=== PATIENT | male | born 1955 | race Caucasian/White ===

== ENCOUNTER 2016-07-19 09:50 | Inpatient (IN) | payer MEDICAID ==
--- NOTE | 2016-07-19 09:56 | C.PDOC ---
History Of Present Illness LIMITED DUE TO CLIN COND HX PER EMS FOUND AMS. SON STATES PT FELL OUT OF BED @ 0300, PER EMS SON STATED PT "SEEMED OFF" BUT PT STATED WAS FINE, WAS PLACED BACK IN BED. PT AWOKE @ 0915 W SLURRED SPEECH, LETHARGY. EMS STATES PT FOUND W BOTTLE MORPHINE FOR 60 DAY SUPPLY FILLED 06/27, ONLY 2 PILLS LEFT. UNK DOSE. HO PRIOR L SIDED CVA ROS UTO EXAM MOD DIST, LETHARGIC HEENT PUPILS PINPOINT, SLUGGISH; +GAG REFLEX LUNGS APNEIC, POOR EFFORT CTA B/L CV RRR NEURO CHRONIC L SIDED HEMIPLEGIA; FOCAL RESPONSE TO PAIN R UE PSYCH APPEARS NARC INTOX SKIN WARM DRY Time Seen by Provider: 07/19/16 09:56 History Per: EMS History/Exam Limitations: clinical condition Current Symptoms Are (Timing): Still Present Past Medical History Reviewed: Historical Data, Nursing Documentation, Vital Signs Vital Signs: Last Vital Signs Temp 97.7 F 07/19/16 10:01 Pulse 84 07/19/16 12:14 Resp 20 07/19/16 12:14 BP 165/93 H 07/19/16 12:14 Pulse Ox 100 07/19/16 12:14 - Medical History PMH: CVA Family History: States: Unknown Family Hx Review Of Systems Review Of Systems: ROS cannot be obtained secondary to pt's inabilty to answer questions. Physical Exam - Physical Exam Appears: Other (MODERATE DISTRESS, LETHARGIC) Skin: Warm, Dry Head: Atraumatic, Normacephalic Eye(s): bilateral: Other (PUPILS PINPOINT, SLUGGISH) Throat: Other (+GAG REFLEX) Chest: Symmetrical Cardiovascular: Rhythm Regular Respiratory: No Rales, No Rhonchi, No Wheezing, Other (APNEIC, POOR EFFORT CTA B /L) Gastrointestinal/Abdominal: Soft, No Tenderness Neurological/Psych: Other (NEURO: CHRONIC L SIDED HEMIPLEGIA; FOCAL RESPONSE TO PAIN R UPPER EXTREMITY. PSYCH APPEARS NARC INTOX.) ED Course And Treatment - Laboratory Results Result Diagrams: 07/19/16 10:30 07/19/16 10:30 ECG: Interpreted By Me ECG Rhythm: 1st Degree HB ECG Interpretation: No Acute Changes Rate From EC (BPM) Progress - Re-Evaluation Re-evaluation Note: 07/19/16 09:56 SP NARCAN: IMPROVED ALERTNESS, RESPIRATIONS. IMPROVED MOVEMENT RUE/RLE. PT OFFERS NO COMPLAINT. 07/19/16 10:37 RECUR SOMNALANCE BUT RESPONDS TO PAIN STIM, VSS. LABS PENDING 07/19/16 11:39 PERSIST NARC INTOX, VSS 100% RA. D/W DR ERNANDEZ C/F PMD WILL ADMIT 07/19/16 12:14 d/w dr LONGORIA AWARE OF ER FINDINGS WILL EVAL 07/19/16 14:01 FOR ICU ADMISSION - Data Reviewed Data Reviewed: Lab, Diagnostic imaging, EKG, Old records - Critical Care Citical Care: Excluding Proc Time Critical Care Time: 90 minutes - Continuity of Care Discussed patient case with:: On-call PMD-pt unassigned Discussed pt. case with science consultant/specialty: Pulmonary/Crit. Care Disposition Counseled Patient/Family Regarding: Studies Performed, Diagnosis - Disposition Disposition: HOSPITALIZED Disposition Time: 14:01 Condition: STABLE - POA Present On Arrival: None - Clinical Impression Clinical Impression: Acute narcotic intoxication, Respiratory depression Decision To Admit - Pt Status Changed To: Hospital Disposition Of: Inpatient - Admit Certification Admit to Inpatient:: After my assessment, the patient will require hospitalization for at least two midnights. This is because of the severity of symptoms shown, intensity of services needed, and/or the medical risk in this patient being treated as an outpatient. - InPatient: Physician Admission Certification: I certify that this patient requires 2 or more midnights of care for the following reason:: SEE NOTE - . Bed Request Type: ICU Admitting Physician: Praneeth Ernandez Patient Diagnosis: Acute narcotic intoxication
[2016-07-19] MEDS ORDERED: Naloxone 0.4 mg/ml Inj (Adult) IV ONE (09:57)
--- NOTE | 2016-07-19 10:29 | CT ---
PROCEDURE: CT HEAD WITHOUT CONTRAST. HISTORY: AMS, NARCOTIC OD PRIOR L HEMIPLEGIA COMPARISON: None available. TECHNIQUE: Axial computed tomography images were obtained through the head/brain without intravenous contrast. Radiation dose: Total exam DLP = 1000 mGy-cm. FINDINGS: HEMORRHAGE: No intracranial hemorrhage. BRAIN: No mass effect or edema. There is a chronic lacunar infarct in the right thalamus. VENTRICLES: Unremarkable. No hydrocephalus. CALVARIUM: Unremarkable. PARANASAL SINUSES: Unremarkable as visualized. No significant inflammatory changes. MASTOID AIR CELLS: Unremarkable as visualized. No inflammatory changes. OTHER FINDINGS: None. IMPRESSION: No acute intracranial findings.
[2016-07-19] MEDS ORDERED: Naloxone 0.4 mg/ml Inj (Adult) ONE (10:33)
[2016-07-19 10:35] LABS: BASO % 0.2 % (0.0-2.0); HEMATOCRIT 31.6 % (35.0-51.0); LYMPH # 0.4 K/uL (1.0-4.3); LYMPH % 2.3 % (20.0-40.0); MEAN CELL VOLUME 61.5 fL (80.0-94.0); MEAN CORPUSCULAR HGB CONC 29.3 g/dL (33.0-37.0); MEAN PLATELET VOLUME 8.7 fL (7.2-11.7); MONO % 5.8 % (0.0-10.0); NRBC % 0.1 % (0.0-2.0); PLATELET COUNT 319 K/uL (130-400); RED CELL DISTRIBUTION WIDTH 20.5 % (11.5-14.5); WHITE BLOOD COUNT 17.4 K/uL (4.8-10.8)
--- NOTE | 2016-07-19 10:44 | RAD ---
HISTORY: AMS, NARCOTIC OD COMPARISON: No prior. FINDINGS: LUNGS: Venous congestion. Somewhat rounded confluent airspace opacity at the medial left lower lung zone of uncertain clinical etiology. Correlation with lateral view and or chest CT may be helpful if clinically indicated. PLEURA: As above. CARDIOVASCULAR: Mild cardiomegaly. 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 Prominent degenerative changes in the left shoulder joint. VISUALIZED UPPER ABDOMEN: Normal. OTHER FINDINGS: None. IMPRESSION: Venous congestion. Somewhat rounded confluent airspace opacity at the medial left lower lung zone of uncertain clinical etiology. Correlation with lateral view and or chest CT may be helpful if clinically indicated.
[2016-07-19 10:45] LABS: CHLORIDE 102 mmol/L (98-107); POTASSIUM 3.8 mmol/L (3.6-5.2); SODIUM 137 mmol/L (132-148)
[2016-07-19 10:47] LABS: BILIRUBIN,TOTAL 0.6 mg/dL (0.2-1.3); CARBON DIOXIDE 23 mmol/L (22-30); CHOLESTEROL 119 mg/dL (0-199); GFR AFRICAN-AMERICAN > 60
[2016-07-19 10:48] LABS: ALB/GLOB RATIO 1.1 (1.0-2.1); ALKALINE PHOSPHATASE 56 U/L (38-126); ALT/SGPT 26 U/L (21-72); AST/SGOT 26 U/L (17-59); BLOOD UREA NITROGEN 12 mg/dL (9-20); CALCIUM 9.1 mg/dl (8.6-10.4); GLUCOSE,RANDOM 120 mg/dL (75-110); TOTAL PROTEIN 7.1 g/dL (6.3-8.3)
[2016-07-19 11:04] LABS: RBC URINE 1 /hpf (0-3); URINE BILIRUBIN NEGATIVE (NEGATIVE); URINE BLOOD NEGATIVE (NEGATIVE); URINE COLOR Yellow (YELLOW); URINE GLUCOSE (UA) NORMAL (Normal); URINE KETONE TRACE mg/dL (NEGATIVE); URINE LEUKOCYTE ESTERASE NEG Leu/uL (Negative); URINE PROTEIN NEGATIVE (NEGATIVE); URINE UROBILINOGEN NORMAL mg/dL (0.2-1.0); WBC URINE 1 /hpf (0-5)
[2016-07-19 11:06] LABS: INR 1.2
[2016-07-19 11:12] LABS: NEUTROPHIL 93 % (50-75); TOTAL CELLS COUNTED 100
--- NOTE | 2016-07-19 15:05 | CP.PCM.CON ---
History of Present Illness - History of Present Illness History of Present Illness: I was asked to see patient by Dr. Bruno. Patient is a 60 year old male who presents with altered mental status. The patient has an apparent chronic pain syndrome and was found unresponsive by his family. The patient was found to have narcotic overdose. He responded to narcan, but has been somnolent. Review of Systems - Review of Systems Systems not reviewed;Unavailable: Altered Mental Status Past Patient History - Past Social History Smoking Status: No as per - CARDIAC Hx Hypertension: Yes - NEUROLOGICAL HX Cerebrovascular Accident: Yes (1996) - GASTROINTESTINAL Hx Gastroesophageal Reflux: Yes - PSYCHIATRIC Hx Substance Use: No (Per son) - SURGICAL HISTORY Hx Surgeries: No - ANESTHESIA Hx Anesthesia: No Meds Allergies/Adverse Reactions: Allergies Allergy/AdvReac Type Severity Reaction Status Date / Time No Known Allergies Allergy Verified 07/19/16 10:09 Physical Exam - Constitutional Appears: Non-toxic - Head Exam Head Exam: NORMAL INSPECTION - Eye Exam Eye Exam: Normal appearance - ENT Exam ENT Exam: Mucous Membranes Moist - Neck Exam Neck exam: Positive for: Full Rom - Respiratory Exam Respiratory Exam: Decreased Breath Sounds - Cardiovascular Exam Cardiovascular Exam: REGULAR RHYTHM - GI/Abdominal Exam GI & Abdominal Exam: Normal Bowel Sounds - Rectal Exam Rectal Exam: Deferred - Extremities Exam Extremities exam: Negative for: pedal edema - Back Exam Back exam: NORMAL INSPECTION - Neurological Exam Additional comments: somnolent - Skin Skin Exam: Normal Color Results - Vital Signs Recent Vital Signs: Last Vital Signs Temp 97.3 F L 07/19/16 14:28 Pulse 82 07/19/16 14:28 Resp 17 07/19/16 14:28 BP 131/90 07/19/16 14:28 Pulse Ox 100 07/19/16 14:28 - Labs Result Diagrams: 07/19/16 10:30 07/19/16 10:30 - EKG Data EKG Interpreted by: Myself Assessment & Plan (1) Acute narcotic intoxication Assessment and Plan: Patient will likely need cotinued narcan. recommend ICU evaluation as patient may not be able to protect his airway. Status: Acute
[2016-07-19] MEDS: Lactated Ringer's 1,000 ML IV SCH (15:45)
[2016-07-19] MEDS ORDERED: Azithromycin 500 MG in Sodium Chloride 0.9% 250 ML IVPB SCH (18:45)
--- NOTE | 2016-07-19 18:46 | CP.PCM.CON ---
History of Present Illness - History of Present Illness History of Present Illness: Patient seen and examined in ER. I was able to speak to the patient when I woke him up, but his speech is difficult. As per ER notes the patient fell out of bed and then found by the family with slurred speech and he seemed off. Urine toxicology positive for benzodiazepines and morphine. The patient states that he takes pain medication since he has pain on the left side since his stroke, does not remember the exact date and he has a pain specialist. He is able to follow commands and saturate well on RA. ros/social/FH: limited since I can not understand all that he says pe: bp: 161/87 mmhg, hr 73 bpm, T 97.3 F, rr 18 bpm, O2 100% on RA alert, following commands, knows he is in a hospital, not oriented to time. s1, s2 rrr lungs clear bilateral air of enty abdomen soft, non tender left sided weakness with left upper hand in a fist, but he is able to extend it , baseline as per patient and he states he is able to walk. a/p: opiate overdose: airway watch in ICU, no narcan, just watch, pain controlled. CT of head no acute stroke. Send tylenol, salicylate level. bp elevated, no medications for now. Past Patient History - Past Social History Smoking Status: No as per - CARDIAC Hx Hypertension: Yes - NEUROLOGICAL HX Cerebrovascular Accident: Yes (1996) - GASTROINTESTINAL Hx Gastroesophageal Reflux: Yes - PSYCHIATRIC Hx Substance Use: No (Per son) - SURGICAL HISTORY Hx Surgeries: No - ANESTHESIA Hx Anesthesia: No Meds Allergies/Adverse Reactions: Allergies Allergy/AdvReac Type Severity Reaction Status Date / Time No Known Allergies Allergy Verified 07/19/16 10:09 - Medications Medications: Current Medications Enoxaparin Sodium (Lovenox) 40 mg SC DAILY [facility] Famotidine (Pepcid) 20 mg IVP DAILY JAYLEN Last Admin: 07/19/16 15:45 Dose: 20 mg Lactated Ringer's (Lactated Ringer's) 1,000 mls @ 100 mls/hr IV .Q10H JAYLEN Last Admin: 07/19/16 15:45 Dose: 100 mls/hr Azithromycin 500 mg/ Sodium (Chloride) 250 mls @ 250 mls/hr IVPB Q24H [facility] Ceftriaxone Sodium 1 gm/ (Sodium Chloride) 100 mls @ 100 mls/hr IVPB Q24H JAYLEN Results - Vital Signs Recent Vital Signs: Last Vital Signs Temp 97.3 F L 07/19/16 14:28 Pulse 73 07/19/16 16:12 Resp 18 07/19/16 16:12 BP 161/87 H 07/19/16 16:12 Pulse Ox 100 07/19/16 16:12 - Labs Result Diagrams: 07/19/16 10:30 07/19/16 10:30
[2016-07-19] MEDS: cefTRIAXone IV 1 gm in Dextros 50 ML IVPB SCH (20:11)
[2016-07-19] MEDS: Azithromycin 500 MG in Sodium Chloride 0.9% 250 ML IVPB SCH (20:12)
[2016-07-19] MEDS ORDERED: Magnesium Hydroxide Susp 30 ml UD PO ONE (23:44)
[2016-07-20] MEDS: Lactated Ringer's 1,000 ML IV SCH (03:39)
[2016-07-20 06:33] LABS: BASO % 0.1 % (0.0-2.0); EOS # 0.1 K/uL (0.0-0.7); EOS % 0.9 % (0.0-4.0); HEMATOCRIT 31.8 % (35.0-51.0); LYMPH # 0.9 K/uL (1.0-4.3); LYMPH % 7.1 % (20.0-40.0); MEAN CELL VOLUME 60.7 fL (80.0-94.0); MEAN CORPUSCULAR HEMOGLOBIN 18.2 pg (27.0-31.0); MEAN PLATELET VOLUME 8.9 fL (7.2-11.7); MONO # 0.8 K/uL (0.0-0.8); MONO % 6.6 % (0.0-10.0); PLATELET COUNT 327 K/uL (130-400); RED CELL DISTRIBUTION WIDTH 21.3 % (11.5-14.5); WHITE BLOOD COUNT 11.9 K/uL (4.8-10.8)
[2016-07-20 06:37] LABS: CHLORIDE 96 mmol/L (98-107)
[2016-07-20 06:38] LABS: POTASSIUM 3.7 mmol/L (3.6-5.2); SODIUM 134 mmol/L (132-148)
[2016-07-20 06:40] LABS: ALB/GLOB RATIO 1.2 (1.0-2.1); ALKALINE PHOSPHATASE 61 U/L (38-126); ALT/SGPT 20 U/L (21-72); AST/SGOT 29 U/L (17-59); BILIRUBIN,TOTAL 0.5 mg/dL (0.2-1.3); BLOOD UREA NITROGEN 8 mg/dL (9-20); CARBON DIOXIDE 25 mmol/L (22-30); GFR AFRICAN-AMERICAN > 60; TOTAL PROTEIN 6.7 g/dL (6.3-8.3)
[2016-07-20 06:41] LABS: CALCIUM 8.9 mg/dl (8.6-10.4); GLUCOSE,RANDOM 99 mg/dL (75-110); PHOSPHOROUS 2.7 mg/dL (2.5-4.5)
--- NOTE | 2016-07-20 07:16 | CP.CCUPN ---
<[email or web address] - Last Filed: 07/20/16 11:37> CCU Subjective - Physician Review Subjective (Free Text): 07/20/16 09:09 Pt seen and examined in no acute distress. Patient states that he would like to move his bowels since he has not in two days. Pt does not seem to remember his conversation with the final canoe inspector yesterday upon arrival. He states that he experienced a stroke in 1997 for which he has some residual left sided muscle strength weakness. Pt denies any subjective fevers or chills, nausea, vomiting, paresthesias, diarrhea or constipation at this time. Critical Care Time Spent (in minutes): 35 CCU Objective - Vital Signs / Intake & Output Vital Signs (Last 4 hours): Vital Signs Pulse Resp BP Pulse Ox 07/20/16 07:00 77 16 100 07/20/16 06:54 90 24 168/90 H 100 07/20/16 06:37 74 22 99 07/20/16 06:00 69 23 100 07/20/16 05:55 70 27 H 134/86 100 07/20/16 05:11 88 18 98 07/20/16 05:00 90 16 78 L 07/20/16 04:55 76 11 L 125/82 100 07/20/16 04:00 72 17 100 07/20/16 03:54 81 14 165/90 H 100 Intake and Output (Last 8hrs): Intake & Output 07/19/16 07/20/16 07/20/16 22:59 06:59 14:59 Intake Total 500 900 Output Total 200 400 Balance 300 500 Weight 185 lb Intake: Intake, IV Amount 400 800 Right Forearm 400 800 Oral 100 100 Output: Urine 200 400 Urine, Voided 200 400 Other: # Voids Urine, Voided 1 1 # Bowel Movements 0 - Physical Exam Head: Positive for: Atraumatic, Normocephalic Pupils: Positive for: PERRL Extroacular Muscles: Positive for: EOMI Conjunctiva: Positive for: Normal Ears: Positive for: Normal Mouth: Positive for: Moist Mucous Membranes Nose (Internal): Positive for: Normal Inspection Respiratory/Chest: Positive for: Good Air Exchange. Negative for: Respiratory Distress, Accessory Muscle Use Cardiovascular: Positive for: Normal S1, S2 Abdomen: Positive for: Normal Bowel Sounds. Negative for: Tenderness, Distention, Peritoneal Signs, Rebound Upper Extremity: Positive for: Capillary Refill < 2s, Other (left sided muscle strength 4/5 in UE and LE). Negative for: Cyanosis, Edema Neurological: Positive for: CN II-XII Intact, Speech Normal Skin: Positive for: Warm, Dry, Normal Color Psychiatric: Positive for: Alert, Oriented x 3, Normal Insight, Normal Concentration - Medications Active Medications: Active Medications Generic Name Dose Route Start Last Admin Trade Name Freq PRN Reason Stop Dose Admin Atenolol 25 mg 07/20/16 10:00 Tenormin PO DAILY JAYLEN Enoxaparin Sodium 40 mg 07/20/16 10:00 Lovenox SC DAILY JAYLEN Famotidine 20 mg 07/19/16 15:45 07/19/16 15:45 Pepcid IVP 20 mg DAILY JAYLEN Administration Lactated Ringer's 1,000 mls @ 100 mls/hr 07/19/16 15:45 07/20/16 03:39 Lactated Ringer's IV 100 mls/hr .Q10H JAYLEN Administration Azithromycin 500 mg/ Sodium 250 mls @ 250 mls/hr 07/19/16 20:00 07/19/16 20:12 Chloride IVPB 250 mls/hr Q24H JAYLEN Administration Ceftriaxone Sodium 50 mls @ 100 mls/hr 07/19/16 19:00 07/19/16 20:11 Rocephin Iv 1 Gm Duplex IVPB 100 mls/hr Q24H JAYLEN Administration - Patient Studies Lab Studies: Lab Studies 07/20/16 07/19/16 07/19/16 Range/Units 06:18 21:25 20:21 WBC 11.9 H (4.8-10.8) K/uL RBC 5.24 (4.40-5.90) Mil/uL Hgb 9.5 L (12.0-18.0) g/dL Hct 31.8 L (35.0-51.0) % MCV 60.7 L (80.0-94.0) fL MCH 18.2 L (27.0-31.0) pg MCHC 30.0 L (33.0-37.0) g/dL RDW 21.3 H (11.5-14.5) % Plt Count 327 (130-400) K/uL MPV 8.9 (7.2-11.7) fL Neut % (Auto) 85.3 H (50.0-75.0) % Lymph % (Auto) 7.1 L (20.0-40.0) % [place] % (Auto) 6.6 (0.0-10.0) % Eos % (Auto) 0.9 (0.0-4.0) % Baso % (Auto) 0.1 (0.0-2.0) % Neut # 10.2 H (1.8-7.0) K/uL Lymph # 0.9 L (1.0-4.3) K/uL [place] # 0.8 (0.0-0.8) K/uL Eos # 0.1 (0.0-0.7) K/uL Baso # 0.0 (0.0-0.2) K/uL Sodium 134 (132-148) mmol/L Potassium 3.7 (3.6-5.2) mmol/L Chloride 96 L (98-107) mmol/L Carbon Dioxide 25 (22-30) mmol/L Anion Gap 17 (10-20) BUN 8 L (9-20) mg/dL Creatinine 0.8 (0.8-1.5) MG/DL Est GFR ( Amer) > 60 Est GFR (Non-Af Amer) > 60 POC Glucose (mg/dL) 84 (65-110) mg/dL Random Glucose 99 (75-110) mg/dL Calcium 8.9 (8.6-10.4) mg/dl Phosphorus 2.7 (2.5-4.5) mg/dL Magnesium 2.0 (1.6-2.3) mg/dL Total Bilirubin 0.5 (0.2-1.3) mg/dL AST 29 (17-59) U/L ALT 20 L D (21-72) U/L Alkaline Phosphatase 61 (38-126) U/L Total Protein 6.7 (6.3-8.3) g/dL Albumin 3.6 (3.5-5.0) g/dL Globulin 3.0 (2.2-3.9) gm/dL Albumin/Globulin Ratio 1.2 (1.0-2.1) Salicylates < 1.0 mg/dL 1 Acetaminophen < 10.0 L (10.0-30.0) ug/mL Alcohol, Quantitative < 10 (0-10) mg/dl Laboratory Results - last 24 hr 07/19/16 07/19/16 07/20/16 20:21 21:25 06:18 WBC 11.9 H RBC 5.24 Hgb 9.5 L Hct 31.8 L MCV 60.7 L MCH 18.2 L MCHC 30.0 L RDW 21.3 H Plt Count 327 MPV 8.9 Neut % (Auto) 85.3 H Lymph % (Auto) 7.1 L [place] % (Auto) 6.6 Eos % (Auto) 0.9 Baso % (Auto) 0.1 Neut # 10.2 H Lymph # 0.9 L [place] # 0.8 Eos # 0.1 Baso # 0.0 Sodium 134 Potassium 3.7 Chloride 96 L Carbon Dioxide 25 Anion Gap 17 BUN 8 L Creatinine 0.8 Est GFR ( Amer) > 60 Est GFR (Non-Af Amer) > 60 POC Glucose (mg/dL) 84 Random Glucose 99 Calcium 8.9 Phosphorus 2.7 Magnesium 2.0 Total Bilirubin 0.5 AST 29 ALT 20 L D Alkaline Phosphatase 61 Total Protein 6.7 Albumin 3.6 Globulin 3.0 Albumin/Globulin Ratio 1.2 Salicylates < 1.0 Acetaminophen < 10.0 L Alcohol, Quantitative < 10 Fingerstick Blood Sugar Results: 139 Review of Systems - Review of Systems Review of Systems: see subjective Assessment/Plan - Assessment and Plan (Free Text) Assessment: 60 year old male with PMHx significant for CVA in 1997 and chronic pain syndrome initially presented AMS on 07/19. Patient found unresponsive by family after suspected narcotic overdose. Patient admitted to ICU for clinical care monitoring after concerns regarding patient being able to maintain airway. Plan: Neuro: awake, alert, oriented x3 on present evaluation Airway patent UDS positive for opiates- patient Hx of stroke- some residual left sided muscle strength weakness Benefit from PT/OT Tylenol level less than 10 Alcohol level less than 10 No pain at this time. Will need home meds confirmed. Cardio: Vitals stable F/U echo Pulm: Initial CXR 07/19: venous congestion; somewhat rounded confluent airspace opacity at the medial left lower lung zone of uncertain clinical etiology. May need further studies to correlate. GI: Heart Healthy diet Constipated- Milk of Magnesia given Nephro: Cont to monitor ins and outs BUN/Cr WNL Heme: Stable, WNL ID: WBC decreasing Ceftriaxone and Azithromycin Day 2 Bands 1 Prophylaxis DVT: Lovenox GI: Pepcid Disp: Clinically stable for transfer to medical floor. <Carlotta Gregory - Last Filed: 07/20/16 17:52> CCU Subjective - Physician Review Events Since Last Encounter (Free Text): 07/20/16 17:50 patient seen and examined in am, doing well, speech at baseline as per son and his ms is not wnl, he does not remember me from yesterday. spoke to son in person, pain management physician Amanda Klein [phone] CCU Objective - Vital Signs / Intake & Output Vital Signs (Last 4 hours): Vital Signs Temp Pulse Resp BP Pulse Ox 07/20/16 15:00 98.2 F 71 20 159/89 H 97 07/20/16 14:00 74 100 07/20/16 13:54 81 139/99 H 74 L Intake and Output (Last 8hrs): Intake & Output 07/20/16 07/20/16 07/20/16 06:59 14:59 22:59 Intake Total 900 1050 Output Total 400 650 Balance 500 400 Intake: Intake, IV Amount 800 400 Right Forearm 800 400 Oral 100 650 Output: Urine 400 650 Urine, Voided 400 650 Other: # Voids Urine, Voided 1 - Medications Active Medications: Active Medications Generic Name Dose Route Start Last Admin Trade Name Freq PRN Reason Stop Dose Admin Al Hydrox/Mg Hydrox/Simethicone 30 ml 07/20/16 17:27 Maalox 30 Ml PO Q4H PRN Indigestion / Heartburn Atenolol 50 mg 07/20/16 10:00 07/20/16 09:21 Tenormin PO 50 mg DAILY JAYLEN Administration Enoxaparin Sodium 40 mg 07/20/16 10:00 07/20/16 09:19 Lovenox SC 40 mg DAILY JAYLEN Administration Famotidine 20 mg 07/20/16 10:00 07/20/16 09:19 Pepcid PO 20 mg DAILY JAYLEN Administration Azithromycin 500 mg/ Sodium 250 mls @ 250 mls/hr 07/19/16 20:00 07/19/16 20:12 Chloride IVPB 250 mls/hr Q24H JAYLEN Administration Ceftriaxone Sodium 50 mls @ 100 mls/hr 07/19/16 19:00 07/19/16 20:11 Rocephin Iv 1 Gm Duplex IVPB 100 mls/hr Q24H JAYLEN Administration Polyethylene Glycol 17 gm 07/20/16 10:00 07/20/16 09:19 Miralax PO 17 gm DAILY JAYLEN Administration Saccharomyces Boulardii 250 mg 07/20/16 18:00 07/20/16 17:39 Florastor PO 250 mg BID JAYLEN Administration - Patient Studies Lab Studies: Lab Studies 07/20/16 07/20/16 07/20/16 Range/Units 12:32 07:24 06:18 WBC 11.9 H (4.8-10.8) K/uL RBC 5.24 (4.40-5.90) Mil/uL Hgb 9.5 L (12.0-18.0) g/dL Hct 31.8 L (35.0-51.0) % MCV 60.7 L (80.0-94.0) fL MCH 18.2 L (27.0-31.0) pg MCHC 30.0 L (33.0-37.0) g/dL RDW 21.3 H (11.5-14.5) % Plt Count 327 (130-400) K/uL MPV 8.9 (7.2-11.7) fL Neut % (Auto) 85.3 H (50.0-75.0) % Lymph % (Auto) 7.1 L (20.0-40.0) % [place] % (Auto) 6.6 (0.0-10.0) % Eos % (Auto) 0.9 (0.0-4.0) % Baso % (Auto) 0.1 (0.0-2.0) % Neut # 10.2 H (1.8-7.0) K/uL Lymph # 0.9 L (1.0-4.3) K/uL [place] # 0.8 (0.0-0.8) K/uL Eos # 0.1 (0.0-0.7) K/uL Baso # 0.0 (0.0-0.2) K/uL Neutrophils % (Manual) 85 H (50-75) % Band Neutrophils % 1 (0-2) % Lymphocytes % (Manual) 9 L (20-40) % Monocytes % (Manual) 3 (0-10) % Eosinophils % (Manual) 1 (0-4) % Basophils % (Manual) 1 (0-2) % Platelet Estimate Normal (NORMAL) Large Platelets Present Giant Platelets Present Hypochromasia (manual) Moderate Poikilocytosis (manual Slight Anisocytosis (manual) Moderate Target Cells Slight Ovalocytes Slight Sodium 134 (132-148) mmol/L Potassium 3.7 (3.6-5.2) mmol/L Chloride 96 L (98-107) mmol/L Carbon Dioxide 25 (22-30) mmol/L Anion Gap 17 (10-20) BUN 8 L (9-20) mg/dL Creatinine 0.8 (0.8-1.5) MG/DL Est GFR ( Amer) > 60 Est GFR (Non-Af Amer) > 60 POC Glucose (mg/dL) 105 112 H (65-110) mg/dL Random Glucose 99 (75-110) mg/dL Calcium 8.9 (8.6-10.4) mg/dl Phosphorus 2.7 (2.5-4.5) mg/dL Magnesium 2.0 (1.6-2.3) mg/dL Total Bilirubin 0.5 (0.2-1.3) mg/dL AST 29 (17-59) U/L ALT 20 L D (21-72) U/L Alkaline Phosphatase 61 (38-126) U/L Total Protein 6.7 (6.3-8.3) g/dL Albumin 3.6 (3.5-5.0) g/dL Globulin 3.0 (2.2-3.9) gm/dL Albumin/Globulin Ratio 1.2 (1.0-2.1) Salicylates mg/dL 1 Acetaminophen (10.0-30.0) ug/mL Alcohol, Quantitative (0-10) mg/dl 07/19/16 07/19/16 Range/Units 21:25 20:21 WBC (4.8-10.8) K/uL RBC (4.40-5.90) Mil/uL Hgb (12.0-18.0) g/dL Hct (35.0-51.0) % MCV (80.0-94.0) fL MCH (27.0-31.0) pg MCHC (33.0-37.0) g/dL RDW (11.5-14.5) % Plt Count (130-400) K/uL MPV (7.2-11.7) fL Neut % (Auto) (50.0-75.0) % Lymph % (Auto) (20.0-40.0) % [place] % (Auto) (0.0-10.0) % Eos % (Auto) (0.0-4.0) % Baso % (Auto) (0.0-2.0) % Neut # (1.8-7.0) K/uL Lymph # (1.0-4.3) K/uL [place] # (0.0-0.8) K/uL Eos # (0.0-0.7) K/uL Baso # (0.0-0.2) K/uL Neutrophils % (Manual) (50-75) % Band Neutrophils % (0-2) % Lymphocytes % (Manual) (20-40) % Monocytes % (Manual) (0-10) % Eosinophils % (Manual) (0-4) % Basophils % (Manual) (0-2) % Platelet Estimate (NORMAL) Large Platelets Giant Platelets Hypochromasia (manual) Poikilocytosis (manual Anisocytosis (manual) Target Cells Ovalocytes Sodium (132-148) mmol/L Potassium (3.6-5.2) mmol/L Chloride (98-107) mmol/L Carbon Dioxide (22-30) mmol/L Anion Gap (10-20) BUN (9-20) mg/dL Creatinine (0.8-1.5) MG/DL Est GFR ( Amer) Est GFR (Non-Af Amer) POC Glucose (mg/dL) 84 (65-110) mg/dL Random Glucose (75-110) mg/dL Calcium (8.6-10.4) mg/dl Phosphorus (2.5-4.5) mg/dL Magnesium (1.6-2.3) mg/dL Total Bilirubin (0.2-1.3) mg/dL AST (17-59) U/L ALT (21-72) U/L Alkaline Phosphatase (38-126) U/L Total Protein (6.3-8.3) g/dL Albumin (3.5-5.0) g/dL Globulin (2.2-3.9) gm/dL Albumin/Globulin Ratio (1.0-2.1) Salicylates < 1.0 mg/dL 1 Acetaminophen < 10.0 L (10.0-30.0) ug/mL Alcohol, Quantitative < 10 (0-10) mg/dl Laboratory Results - last 24 hr 07/19/16 07/19/16 07/20/16 20:21 21:25 06:18 WBC 11.9 H RBC 5.24 Hgb 9.5 L Hct 31.8 L MCV 60.7 L MCH 18.2 L MCHC 30.0 L RDW 21.3 H Plt Count 327 MPV 8.9 Neut % (Auto) 85.3 H Lymph % (Auto) 7.1 L [place] % (Auto) 6.6 Eos % (Auto) 0.9 Baso % (Auto) 0.1 Neut # 10.2 H Lymph # 0.9 L [place] # 0.8 Eos # 0.1 Baso # 0.0 Neutrophils % (Manual) 85 H Band Neutrophils % 1 Lymphocytes % (Manual) 9 L Monocytes % (Manual) 3 Eosinophils % (Manual) 1 Basophils % (Manual) 1 Platelet Estimate Normal Large Platelets Present Giant Platelets Present Hypochromasia (manual) Moderate Poikilocytosis (manual Slight Anisocytosis (manual) Moderate Target Cells Slight Ovalocytes Slight Sodium 134 Potassium 3.7 Chloride 96 L Carbon Dioxide 25 Anion Gap 17 BUN 8 L Creatinine 0.8 Est GFR ( Amer) > 60 Est GFR (Non-Af Amer) > 60 POC Glucose (mg/dL) 84 Random Glucose 99 Calcium 8.9 Phosphorus 2.7 Magnesium 2.0 Total Bilirubin 0.5 AST 29 ALT 20 L D Alkaline Phosphatase 61 Total Protein 6.7 Albumin 3.6 Globulin 3.0 Albumin/Globulin Ratio 1.2 Salicylates < 1.0 Acetaminophen < 10.0 L Alcohol, Quantitative < 10 07/20/16 07/20/16 07:24 12:32 WBC RBC Hgb Hct MCV MCH MCHC RDW Plt Count MPV Neut % (Auto) Lymph % (Auto) [place] % (Auto) Eos % (Auto) Baso % (Auto) Neut # Lymph # [place] # Eos # Baso # Neutrophils % (Manual) Band Neutrophils % Lymphocytes % (Manual) Monocytes % (Manual) Eosinophils % (Manual) Basophils % (Manual) Platelet Estimate Large Platelets Giant Platelets Hypochromasia (manual) Poikilocytosis (manual Anisocytosis (manual) Target Cells Ovalocytes Sodium Potassium Chloride Carbon Dioxide Anion Gap BUN Creatinine Est GFR ( Amer) Est GFR (Non-Af Amer) POC Glucose (mg/dL) 112 H 105 Random Glucose Calcium Phosphorus Magnesium Total Bilirubin AST ALT Alkaline Phosphatase Total Protein Albumin Globulin Albumin/Globulin Ratio Salicylates Acetaminophen Alcohol, Quantitative Critical Care Progress Note - Nutrition Nutrition: Nutrition Category Date Time Status Regular Diet [DIET] Diets 07/20/16 Breakfast Active
[2016-07-20 08:30] LABS: BASOPHIL 1 % (0-2); EOSINOPHIL 1 % (0-4); NEUTROPHIL 85 % (50-75); TOTAL CELLS COUNTED 100
[2016-07-20 08:34] LABS: GIANT PLATELETS PRESENT; LARGE PLATELETS PRESENT
[2016-07-20] MEDS: POLYETHYLENE GLYCOL 3350 17 GM/Dose PACKET PO SCH (09:19)
[2016-07-20] MEDS: Enoxaparin 40 mg Syringe SC SCH (09:19)
[2016-07-20] MEDS ORDERED: Aluminum Hydroxide/Magnesium Hydroxide Susp (30 mL) PO ONE (16:40)
[2016-07-20 17:08] VITALS: RESP 20
[2016-07-20] MEDS ORDERED: Aluminum Hydroxide/Magnesium Hydroxide Susp (30 mL) PO PRN (17:27)
--- NOTE | 2016-07-20 17:35 | CP.PCM.HP ---
<Mau Ta - Last Filed: 07/20/16 17:26> History of Present Illness - History of Present Illness History of Present Illness: This is a 60 yo M with PMH of stroke (1997), chronic pain and HTN that presented to the ED after family found him with slurred speech and "seemed off. " According to EMS, narcotic overdose was suspected as EMS found a bottle of morphine for 60 day supply that was filled on 06/27 with only 2 pills left. He was given narcan which he responded to with increased alertness, following commands and improved breathing. The pt states that he does not remember how much he took and did not overdose on purpose. Pt has percocet and morphine at home for chronic pain that he has had since his stroke in 1997. He sees a pain specialist and states that he was just taking extra because of the pain. He has no suicidal ideations. Pt only has a complaint of indigestation currently. Denies any focal deficits, fevers, chills, chest pain, sob, nausea or vomiting. PMH: as per HPI PSH: denies Home medications: percocet, morphine and BP meds (unknown) Allergies: NKA Present on Admission - Present on Admission Any Indicators Present on Admission: No Review of Systems - Constitutional Constitutional: absent: Chills, Fever - EENT Eyes: absent: Blurred Vision, Pain - Cardiovascular Cardiovascular: absent: Chest Pain, Palpitations - Respiratory Respiratory: absent: Cough, Dyspnea - Gastrointestinal Gastrointestinal: absent: Abdominal Pain, Nausea, Vomiting - Musculoskeletal Musculoskeletal: absent: Muscle Weakness, Stiffness - Integumentary Integumentary: absent: Pruritus, Rash - Neurological Neurological: absent: Abnormal Movements, Confusion, Numbness, Focal Weakness, Headaches, Tingling Past Patient History - Past Medical History & Family History Past Medical History?: Yes - Past Social History Smoking Status: No as per - CARDIAC Hx Hypertension: Yes - NEUROLOGICAL HX Cerebrovascular Accident: Yes (1996) - MUSCULOSKELETAL/RHEUMATOLOGICAL Hx Falls: No - GASTROINTESTINAL Hx Gastroesophageal Reflux: Yes - PSYCHIATRIC Hx Substance Use: No (Per son) - SURGICAL HISTORY Hx Surgeries: No - ANESTHESIA Hx Anesthesia: No Meds Home Medications: Home Medication List Medication Instructions Recorded Confirmed Type Atenolol [Tenormin] 50 mg PO DAILY #30 tab 07/22/16 Rx Allergies/Adverse Reactions: Allergies Allergy/AdvReac Type Severity Reaction Status Date / Time No Known Allergies Allergy Verified 07/19/16 10:09 Physical Exam - Constitutional Appears: Well, Non-toxic, No Acute Distress - Head Exam Head Exam: ATRAUMATIC, NORMOCEPHALIC - Eye Exam Eye Exam: Normal appearance, PERRL - ENT Exam ENT Exam: Mucous Membranes Moist - Neck Exam Neck exam: Positive for: Normal Inspection - Respiratory Exam Respiratory Exam: Clear to Auscultation Bilateral, NORMAL BREATHING PATTERN - Cardiovascular Exam Cardiovascular Exam: +S1, +S2 - GI/Abdominal Exam GI & Abdominal Exam: Normal Bowel Sounds, Soft - Extremities Exam Extremities exam: Positive for: normal capillary refill, normal inspection - Back Exam Back exam: NORMAL INSPECTION - Neurological Exam Neurological exam: Alert, CN II-XII Intact, Oriented x3 Additional comments: No new focal neurological defects. Pt has some deficits from old stroke on left side, but functional - Skin Skin Exam: Dry, Warm Results - Vital Signs Recent Vital Signs: Last Vital Signs Temp 98.2 F 07/20/16 15:00 Pulse 71 07/20/16 15:00 Resp 20 07/20/16 15:00 BP 159/89 H 07/20/16 15:00 Pulse Ox 97 07/20/16 15:00 - Labs Result Diagrams: 07/20/16 06:18 07/20/16 06:18 Labs: Laboratory Results - last 24 hr 07/19/16 07/19/16 07/20/16 20:21 21:25 06:18 WBC 11.9 H RBC 5.24 Hgb 9.5 L Hct 31.8 L MCV 60.7 L MCH 18.2 L MCHC 30.0 L RDW 21.3 H Plt Count 327 MPV 8.9 Neut % (Auto) 85.3 H Lymph % (Auto) 7.1 L [place] % (Auto) 6.6 Eos % (Auto) 0.9 Baso % (Auto) 0.1 Neut # 10.2 H Lymph # 0.9 L [place] # 0.8 Eos # 0.1 Baso # 0.0 Neutrophils % (Manual) 85 H Band Neutrophils % 1 Lymphocytes % (Manual) 9 L Monocytes % (Manual) 3 Eosinophils % (Manual) 1 Basophils % (Manual) 1 Platelet Estimate Normal Large Platelets Present Giant Platelets Present Hypochromasia (manual) Moderate Poikilocytosis (manual Slight Anisocytosis (manual) Moderate Target Cells Slight Ovalocytes Slight Sodium 134 Potassium 3.7 Chloride 96 L Carbon Dioxide 25 Anion Gap 17 BUN 8 L Creatinine 0.8 Est GFR ( Amer) > 60 Est GFR (Non-Af Amer) > 60 POC Glucose (mg/dL) 84 Random Glucose 99 Calcium 8.9 Phosphorus 2.7 Magnesium 2.0 Total Bilirubin 0.5 AST 29 ALT 20 L D Alkaline Phosphatase 61 Total Protein 6.7 Albumin 3.6 Globulin 3.0 Albumin/Globulin Ratio 1.2 Salicylates < 1.0 Acetaminophen < 10.0 L Alcohol, Quantitative < 10 07/20/16 07/20/16 07:24 12:32 WBC RBC Hgb Hct MCV MCH MCHC RDW Plt Count MPV Neut % (Auto) Lymph % (Auto) [place] % (Auto) Eos % (Auto) Baso % (Auto) Neut # Lymph # [place] # Eos # Baso # Neutrophils % (Manual) Band Neutrophils % Lymphocytes % (Manual) Monocytes % (Manual) Eosinophils % (Manual) Basophils % (Manual) Platelet Estimate Large Platelets Giant Platelets Hypochromasia (manual) Poikilocytosis (manual Anisocytosis (manual) Target Cells Ovalocytes Sodium Potassium Chloride Carbon Dioxide Anion Gap BUN Creatinine Est GFR ( Amer) Est GFR (Non-Af Amer) POC Glucose (mg/dL) 112 H 105 Random Glucose Calcium Phosphorus Magnesium Total Bilirubin AST ALT Alkaline Phosphatase Total Protein Albumin Globulin Albumin/Globulin Ratio Salicylates Acetaminophen Alcohol, Quantitative Assessment & Plan - Assessment and Plan (Free Text) Assessment: AMS - Resolved - due to overdose of narcotics - stable now, protecting airway, speaking in full sentences - CT head 07/19 - no acute intracranial abnormalities - Echo - f/u read - Cardio consult (Awais) - help appreciated - continue to monitor Leukocytosis - secondary to possible PNA vs reactive leukocytosis - Afebrile and stable - CXR 07/19 - Venous congestion. Somewhat rounded confluent airspace opacity at the medial left lower lung zone of uncertain clinical etiology. Correlation with lateral view and or chest CT may be helpful if clinically indicated. - Started on Rocephin (07/19) and Azithromycin (07/19) - WBC trending down - 17.4 on admission, now 11.9 - Florastor - Continue to monitor Hx of HTN - Atenolol 50mg Daily - BP stable, continue to monitor PPX - Pepcid daily and Maalox PRN - Lovenox - Regular diet - PT/OT eval <Jacklyn Mays V - Last Filed: 07/22/16 21:04> Results - Vital Signs Recent Vital Signs: Last Vital Signs Temp 98.4 F 07/22/16 15:10 Pulse 73 07/22/16 15:10 Resp 20 07/22/16 15:10 BP 120/77 07/22/16 15:10 Pulse Ox 99 07/22/16 15:10 - Labs Result Diagrams: 07/22/16 07:30 07/22/16 07:30 Labs: Laboratory Results - last 24 hr 07/21/16 07/22/16 07/22/16 21:24 07:30 07:39 WBC 7.3 RBC 4.88 Hgb 9.0 L Hct 29.9 L MCV 61.2 L MCH 18.5 L MCHC 30.3 L RDW 21.7 H Plt Count 269 MPV 8.7 Neut % (Auto) 60.4 Lymph % (Auto) 20.6 [place] % (Auto) 12.2 H Eos % (Auto) 5.9 H Baso % (Auto) 0.9 Neut # 4.4 Lymph # 1.5 [place] # 0.9 H Eos # 0.4 Baso # 0.1 Sodium 137 Potassium 4.0 Chloride 99 Carbon Dioxide 28 Anion Gap 14 BUN 7 L Creatinine 1.1 Est GFR ( Amer) > 60 Est GFR (Non-Af Amer) > 60 POC Glucose (mg/dL) 98 90 Random Glucose 84 Calcium 8.5 L Phosphorus 3.7 Magnesium 2.0 Total Bilirubin 0.3 AST 25 ALT 21 Alkaline Phosphatase 45 Total Protein 6.0 L Albumin 3.2 L Globulin 2.8 Albumin/Globulin Ratio 1.2 07/22/16 07/22/16 11:51 16:25 WBC RBC Hgb Hct MCV MCH MCHC RDW Plt Count MPV Neut % (Auto) Lymph % (Auto) [place] % (Auto) Eos % (Auto) Baso % (Auto) Neut # Lymph # [place] # Eos # Baso # Sodium Potassium Chloride Carbon Dioxide Anion Gap BUN Creatinine Est GFR ( Amer) Est GFR (Non-Af Amer) POC Glucose (mg/dL) 91 120 H Random Glucose Calcium Phosphorus Magnesium Total Bilirubin AST ALT Alkaline Phosphatase Total Protein Albumin Globulin Albumin/Globulin Ratio Attending/Attestation - Attestation I have personally seen and examined this patient.: Yes I have fully participated in the care of the patient.: Yes I have reviewed all pertinent clinical information: Yes Notes (Text): This is late computer entry for 07/20/16. Patient seen, examined and case discussed with day-time resident. Patient transferred service to the hospitalist service. Patient originally admitted to ICU, following overnight dose narcotic medications and observed overnight and stabilized out from the ICU on 07/19/16 Patient has a history of prior stroke in 1997 with left side weakness and chronic pain associated with the stroke, patient unable to describe what his pain regiment at this time, patient reports he is sees a pain management doctor , Dr. Clark, and has a follow-up appointment with him next month. Patient reports he takes a sleeping medication that cannot remember what the name is. Advised to bring in the bottle or ask his son for the name. Patient is pleasant , awake, alert, oriented man. Assessment/Plan 1) Narcotic overdose * Admitted to ICU, observed and transferred out onto general medical floor * Patient is alert, awake, oriented X3, stable, protecting airway, speaking in full sentences * CT head 07/19/16 - no acute intracranial abnormalities * Echo - f/u read * Cardio consult (Awais) - help appreciated * continue to monitor * Will need to retrieve pain regimen from patient's pharmacy or son 2) Leukocytosis * secondary to possible PNA vs reactive leukocytosis * Afebrile and stable * CXR 07/19 - Venous congestion. Somewhat rounded confluent airspace opacity at the medial left lower lung zone of uncertain clinical etiology. Correlation with lateral view and or chest CT may be helpful if clinically indicated. * Ordered for Chest PA and Lateral xray * Started on Rocephin 1 gram IV qdaily (07/19) and Azithromycin 500mg IV qdaily ( 07/19) to cover for community acquired pneumonia * WBC trending down - 17.4 on admission, now 11.9 * start Florastor 250mg PO bid * Continue to monitor 3) Hypertension, controlled * Atenolol 50mg Daily * BP stable, continue to monitor vital signs 4) PPX * Pepcid 20mg bid and Maalox PRN * Lovenox 40mg subq daily * Regular diet * PT/OT kaushalal
[2016-07-20] MEDS: Saccharomyces Boulardi 250 mg Cap PO SCH (17:39)
[2016-07-20] MEDS: cefTRIAXone IV 1 gm in Dextros 50 ML IVPB SCH (19:00)
[2016-07-20] MEDS: Azithromycin 500 MG in Sodium Chloride 0.9% 250 ML IVPB SCH (20:00)
[2016-07-20] MEDS ORDERED: Oxycodone/Acetaminophen 5/325 mg Tab PO PRN (22:00)
--- NOTE | 2016-07-21 06:28 | CARD ---
APPROVED REPORT EKG Measurement Heart [id number] <Conclusion> Sinus rhythm with 1st degree AV block Otherwise normal ECG
--- NOTE | 2016-07-21 07:45 | CP.PCM.PN ---
<Marge Mar - Last Filed: 07/21/16 12:38> Subjective - Date & Time of Evaluation Date of Evaluation: 07/21/16 Time of Evaluation: 08:45 - Subjective Subjective: PGY1 Medicine Note for Dr. Mays Patient seen and examined at bedside. Patient is AO x 3 this AM with no acute events overnight. Patient denies any focal deficits, headaches, fevers, chills, chest pain, palpitations, sob, cough, abdominal pain, nausea, vomiting, bowel/ bladder complaints. He continues to complain of chronic pain and pain medication regimen was reconciled with [facility] pharmacy. Objective - Vital Signs/Intake and Output Vital Signs (last 24 hours): Temp Pulse Resp BP Pulse Ox 98.1 F 67 20 151/88 H 99 07/20/16 23:01 07/20/16 23:01 07/20/16 23:01 07/20/16 23:01 07/20/16 23:01 - Medications Medications: Current Medications Acetaminophen (Tylenol 325mg Tab) 650 mg PO Q6 PRN PRN Reason: Pain, severe (8-10) Last Admin: 07/21/16 00:25 Dose: 650 mg Al Hydrox/Mg Hydrox/Simethicone (Maalox 30 Ml) 30 ml PO Q4H PRN PRN Reason: Indigestion / Heartburn Amitriptyline HCl (Elavil) 100 mg PO DAILY [facility] Atenolol (Tenormin) 50 mg PO DAILY [facility] Last Admin: 07/20/16 09:21 Dose: 50 mg Enoxaparin Sodium (Lovenox) 40 mg SC DAILY [facility] Last Admin: 07/20/16 09:19 Dose: 40 mg Famotidine (Pepcid) 20 mg PO DAILY [facility] Last Admin: 07/20/16 09:19 Dose: 20 mg Azithromycin 500 mg/ Sodium (Chloride) 250 mls @ 250 mls/hr IVPB Q24H [facility] Last Admin: 07/20/16 20:00 Dose: 250 mls/hr Ceftriaxone Sodium (Rocephin Iv 1 Gm Duplex) 50 mls @ 100 mls/hr IVPB Q24H [facility] Last Admin: 07/20/16 19:00 Dose: 100 mls/hr Oxycodone/Acetaminophen (Percocet 5/325 Mg Tab) 1 tab PO ONCE PRN Stop: 07/23/16 23:00 Last Admin: 07/21/16 03:07 Dose: 1 tab Polyethylene Glycol (Miralax) 17 gm PO DAILY [facility] Last Admin: 07/20/16 09:19 Dose: 17 gm Saccharomyces Boulardii (Florastor) 250 mg PO BID [facility] Last Admin: 07/20/16 17:39 Dose: 250 mg - Labs Labs: 07/20/16 06:18 07/20/16 06:18 PT 13.0 SECONDS (9.7-12.2) H 07/19/16 10:55 INR 1.2 07/19/16 10:55 APTT 31 SECONDS (21-34) 07/19/16 10:55 - Constitutional Appears: Non-toxic, No Acute Distress - Head Exam Head Exam: NORMAL INSPECTION - Eye Exam Eye Exam: Normal appearance. absent: Conjunctival injection, Scleral icterus - ENT Exam ENT Exam: Mucous Membranes Moist - Neck Exam Neck Exam: Normal Inspection - Respiratory Exam Respiratory Exam: Clear to Ausculation Bilateral, NORMAL BREATHING PATTERN. absent: Rales, Rhonchi, Wheezes - Cardiovascular Exam Cardiovascular Exam: REGULAR RHYTHM, +S1, +S2 - GI/Abdominal Exam GI & Abdominal Exam: Soft, Normal Bowel Sounds. absent: Tenderness - Extremities Exam Extremities Exam: Normal Capillary Refill, Normal Inspection. absent: Pedal Edema - Neurological Exam Neurological Exam: Alert, Awake, Oriented x3 - Psychiatric Exam Psychiatric exam: Normal Affect, Normal Mood - Skin Skin Exam: Dry, Intact, Normal Color, Warm Assessment and Plan - Assessment and Plan (Free Text) Plan: AMS - Resolved - due to overdose of narcotics - CT head 07/19 - no acute intracranial abnormalities - Echo - f/u read - Cardio consult (Awais) - help appreciated Leukocytosis - secondary to possible PNA vs reactive leukocytosis - Afebrile and stable - CXR 07/19 - Venous congestion. Somewhat rounded confluent airspace opacity at the medial left lower lung zone of uncertain clinical etiology. Correlation with lateral view and or chest CT may be helpful if clinically indicated. - Started on Rocephin (07/19) and Azithromycin (07/19) - Florastor - Continue to monitor Hx of chronic pain -restarted on home medications -Amitriptyline 100mg PO HS -Oxycodone immediate 5mg PO Q6 PRN -Percocet 5/325mg 1 tab PO Q6 PRN -Morphine ER 30mg PO Q12 Hx of HTN - Atenolol 50mg Daily - Monitor PPX - Pepcid daily and Maalox PRN - Lovenox 40mg daily - Regular diet - PT/OT kaushalal DW attending Marge Mar PGY1 <Jacklyn Mays V - Last Filed: 07/22/16 21:16> Objective - Vital Signs/Intake and Output Vital Signs (last 24 hours): Temp Pulse Resp BP Pulse Ox 98.4 F 73 20 120/77 99 07/22/16 15:10 07/22/16 15:10 07/22/16 15:10 07/22/16 15:10 07/22/16 15:10 Intake and Output: 07/22/16 07/23/16 18:59 06:59 Intake Total 400 300 Output Total 350 Balance 50 300 - Medications Medications: Current Medications Acetaminophen (Tylenol 325mg Tab) 650 mg PO Q6 PRN PRN Reason: Pain, severe (8-10) Last Admin: 07/21/16 00:25 Dose: 650 mg Al Hydrox/Mg Hydrox/Simethicone (Maalox 30 Ml) 30 ml PO Q4H PRN PRN Reason: Indigestion / Heartburn Amitriptyline HCl (Elavil) 100 mg PO [facility] Last Admin: 07/21/16 22:56 Dose: 100 mg Atenolol (Tenormin) 50 mg PO DAILY [facility] Last Admin: 07/22/16 10:21 Dose: 50 mg Enoxaparin Sodium (Lovenox) 40 mg SC DAILY [facility] Last Admin: 07/22/16 10:20 Dose: 40 mg Famotidine (Pepcid) 20 mg PO DAILY [facility] Last Admin: 07/22/16 10:20 Dose: 20 mg Morphine Sulfate (Morphine Extended Release Tab) 30 mg PO Q12 [facility] Last Admin: 07/22/16 10:19 Dose: 30 mg Oxycodone HCl (Oxycodone Immediate Release Tab) 5 mg PO Q6 PRN PRN Reason: Pain, moderate (4-7) Last Admin: 07/22/16 00:10 Dose: 5 mg Oxycodone/Acetaminophen (Percocet 5/325 Mg Tab) 1 tab PO Q6H PRN PRN Reason: Pain, moderate (4-7) Stop: 07/24/16 10:40 Polyethylene Glycol (Miralax) 17 gm PO DAILY [facility] Last Admin: 07/22/16 10:20 Dose: 17 gm Saccharomyces Boulardii (Florastor) 250 mg PO BID [facility] Last Admin: 07/22/16 17:52 Dose: 250 mg - Labs Labs: 07/22/16 07:30 07/22/16 07:30 PT 13.0 SECONDS (9.7-12.2) H 07/19/16 10:55 INR 1.2 07/19/16 10:55 APTT 31 SECONDS (21-34) 07/19/16 10:55 Attending/Attestation - Attestation I have personally seen and examined this patient.: Yes I have fully participated in the care of the patient.: Yes I have reviewed all pertinent clinical information, including history, physical exam and plan: Yes Notes (Text): This is late computer entry for 07/21/16. Patient seen, examined and case discussed with day-time resident. Patient seen at bedside; provided name of pharmacy and we called the pharmacy to secure his actual medication list. Will restart patient on his home pain regimen and observe for 24 hours prior to discharge Patient restarted on his pain regimen and to be observed today to see if he tolerates his regimen. Patient reports he will speak with Dr. Clark regarding moving up his appointment for refills. Assessment/Plan 1) Narcotic overdose * Admitted to ICU, observed and transferred out onto general medical floor * Patient is alert, awake, oriented X3, stable, protecting airway, speaking in full sentences * CT head 07/19/16 - no acute intracranial abnormalities * Echo - f/u read * Cardio consult (Awais) - help appreciated * continue to monitor * 07/19/16 UDS: positive for opiates 2) Leukocytosis * likely reactive * Afebrile and stable * CXR 07/19 - Venous congestion. Somewhat rounded confluent airspace opacity at the medial left lower lung zone of uncertain clinical etiology. Correlation with lateral view and or chest CT may be helpful if clinically indicated. * Ordered for Chest PA and Lateral xray * Started on Rocephin 1 gram IV qdaily (07/19) and Azithromycin 500mg IV qdaily ( 07/19) to cover for community acquired pneumonia * WBC trending down - 17.4 on admission, now 11.9 * start Florastor 250mg PO bid * Continue to monitor 3) Hypertension, controlled * Atenolol 50mg Daily only * BP stable, continue to monitor vital signs * Home medication: Atenolol 25mg PO daily and Cozaar 25mg PO daily per pharmacy list 4) Chronic Pain * secondary to prior stroke in 1997 * Per pharmacy ([address]) * Amitriptyline 100mg POqHS (for sleep) * Morphine ER 30mg PO Q 12hours * Percocet 10/325 1 tab PO Q 6hours PRN pain * Will observe patient on his former pain management regimen for 24 hours * Patient advised to make his follow-up appointment with his pain management doctor sooner in lieu of recent overdose 5) History of stroke * CT head 07/19/16 - no acute intracranial abnormalities * Lipid panel: within normal; values available in EMR * A1c: 5.5 is not diabetic * Mild transaminitis-->will not start statin; follow-up with PMD * Blood pressure control given patient's risk factor of hypertension * Patient reports he goes to a rehab but cannot recall name * Residual pain from stroke with left side weakness requiring pain management 6) PPX * Pepcid 20mg bid and Maalox PRN * Lovenox 40mg subq daily * Regular diet * PT/OT yolande
--- NOTE | 2016-07-21 08:07 | RAD ---
HISTORY: f/u, sob COMPARISON: Comparison is made to 07/19/2026 TECHNIQUE: Chest PA and lateral FINDINGS: LUNGS: No evidence of new infiltrate or consolidation in the lungs. PLEURA: No significant pleural effusion identified. No pneumothorax apparent. CARDIOVASCULAR: Normal. OSSEOUS STRUCTURES: No significant abnormalities. VISUALIZED UPPER ABDOMEN: Normal. OTHER FINDINGS: None. IMPRESSION: No evidence of acute pulmonary disease.
[2016-07-21] MEDS: Enoxaparin 40 mg Syringe SC SCH (10:09)
[2016-07-21] MEDS: Saccharomyces Boulardi 250 mg Cap PO SCH ×2 (10:09→18:00)
[2016-07-21] MEDS: POLYETHYLENE GLYCOL 3350 17 GM/Dose PACKET PO SCH (10:10)
[2016-07-21] MEDS ORDERED: Oxycodone/Acetaminophen 5/325 mg Tab PO PRN (10:39)
[2016-07-21] MEDS ORDERED: oxyCODONE 5 mg Immediate Release Tab PO PRN (10:40)
[2016-07-21] MEDS: Morphine 30 mg SR Tab PO SCH ×2 (11:05→21:29)
--- NOTE | 2016-07-21 21:35 | CARD ---
APPROVED REPORT EXAM: Two-dimensional and M-mode echocardiogram with Doppler and color Doppler. Other Information Technically limited study due to body habitus. INDICATION CVA/TIA RISK FACTORS Hypertension M-Mode DIMENSIONS RVDd0.85 (2.1-3.2cm)Left Atrium (MM)3.01 (2.5-4.0cm) IVSd0.73 (0.7-1.1cm)Aortic Root3.64 (2.2-3.7cm) LVDd4.71 (4.0-5.6cm)Aortic Cusp Exc.2.19 (1.5-2.0cm) PWd0.73 (0.7-1.1cm)FS (%) 27 % LVDs3.44 (2.0-3.8cm)LVEF (%)53 (>50%) Aortic Valve AoV Peak Stianywv504.5cm/Jarred Peak GR.7mmHgAI P 1/2 [id number] Mitral Valve MV E Liixbaey37.2cm/sMV A Kvfgouzu519.9cm/sE/A ratio0.7 TDI E/Lateral E'0.0E/Medial E'0.0 Tricuspid Valve TR Peak [id number]/sTR Peak Gr.[id number] LEFT VENTRICLE The left ventricle is normal size. There is normal left ventricular wall thickness. Left ventricle systolic function is normal. The Ejection Fraction is 50-55%. There is normal LV segmental wall motion. Tissue Doppler imaging reveals abnormal left ventricular diastolic dysfunction. RIGHT VENTRICLE The right ventricle is normal size. There is normal right ventricular wall thickness. The right ventricular systolic function is normal. ATRIA The left atrium size is normal. The right atrium size is normal. The interatrial septum is intact with no evidence for an atrial septal defect. AORTIC VALVE The aortic valve is normal in structure. No aortic regurgitation is present. There is no aortic valvular stenosis. There is no aortic valvular vegetation. MITRAL VALVE The mitral valve is normal in structure. There is no mitral valve stenosis. Mitral regurgitation is trace to mild. TRICUSPID VALVE The tricuspid valve is normal in structure. There is mild tricuspid regurgitation. Right ventricular systolic pressure is estimated at less than 30 mmHg. There is no pulmonary hypertension. There is no tricuspid valve stenosis. PULMONIC VALVE The pulmonic valve is not well visualized. There is mild pulmonic valvular regurgitation. GREAT VESSELS The aortic root is normal in size. PERICARDIAL EFFUSION There is no significant pericardial effusion. <Conclusion> Left ventricle systolic function is normal. The Ejection Fraction is 50-55%. Diastolic dysfunction. No aortic regurgitation is present. Mitral regurgitation is trace to mild. There is mild tricuspid regurgitation. There is no pulmonary hypertension. There is mild pulmonic valvular regurgitation.
[2016-07-22 07:39] LABS: BASO # 0.1 K/uL (0.0-0.2); BASO % 0.9 % (0.0-2.0); EOS # 0.4 K/uL (0.0-0.7); EOS % 5.9 % (0.0-4.0); HEMATOCRIT 29.9 % (35.0-51.0); LYMPH # 1.5 K/uL (1.0-4.3); LYMPH % 20.6 % (20.0-40.0); MEAN CELL VOLUME 61.2 fL (80.0-94.0); MEAN CORPUSCULAR HEMOGLOBIN 18.5 pg (27.0-31.0); MEAN CORPUSCULAR HGB CONC 30.3 g/dL (33.0-37.0); MEAN PLATELET VOLUME 8.7 fL (7.2-11.7); MONO # 0.9 K/uL (0.0-0.8); MONO % 12.2 % (0.0-10.0); RED CELL DISTRIBUTION WIDTH 21.7 % (11.5-14.5); WHITE BLOOD COUNT 7.3 K/uL (4.8-10.8)
[2016-07-22 07:57] LABS: CHLORIDE 99 mmol/L (98-107); SODIUM 137 mmol/L (132-148)
[2016-07-22 07:59] LABS: BILIRUBIN,TOTAL 0.3 mg/dL (0.2-1.3); GFR AFRICAN-AMERICAN > 60
[2016-07-22 08:00] LABS: ALB/GLOB RATIO 1.2 (1.0-2.1); ALKALINE PHOSPHATASE 45 U/L (38-126); ALT/SGPT 21 U/L (21-72); AST/SGOT 25 U/L (17-59); BLOOD UREA NITROGEN 7 mg/dL (9-20); CALCIUM 8.5 mg/dl (8.6-10.4); CARBON DIOXIDE 28 mmol/L (22-30); GLUCOSE,RANDOM 84 mg/dL (75-110); PHOSPHOROUS 3.7 mg/dL (2.5-4.5)
[2016-07-22] MEDS: Saccharomyces Boulardi 250 mg Cap PO SCH ×2 (10:19→17:52)
[2016-07-22] MEDS: Morphine 30 mg SR Tab PO SCH (10:19)
[2016-07-22] MEDS: POLYETHYLENE GLYCOL 3350 17 GM/Dose PACKET PO SCH (10:20)
[2016-07-22] MEDS: Enoxaparin 40 mg Syringe SC SCH (10:20)
--- NOTE | 2016-07-22 11:00 | CP.PCM.DIS ---
Addendum entered and electronically signed by Marge Mar 07/22/16 12:34: please note: Patient to also follow up with cardiology Dr. Ernandez within 10 days regarding primary AV block. Original Note: <Marge Mar - Last Filed: 07/22/16 12:17> Provider - Provider Date of Admission: 07/19/16 14:02 Attending physician: Dr. Jacklyn Mays DO Consults: Dr. Ernandez cardiology Dr. Orozco photo journalist Time Spent in preparation of Discharge (in minutes): 45 Hospital Course - Lab Results Lab Results: Micro Results 07/20/16 Unknown Naris MRSA Culture - Final MRSA NOT DETECTED 07/19/16 Unknown Naris MRSA Culture (Admit) - Final MRSA NOT DETECTED Most Recent Lab Values WBC 7.3 K/uL (4.8-10.8) 07/22/16 07:30 RBC 4.88 Mil/uL (4.40-5.90) 07/22/16 07:30 Hgb 9.0 g/dL (12.0-18.0) L 07/22/16 07:30 Hct 29.9 % (35.0-51.0) L 07/22/16 07:30 MCV 61.2 fL (80.0-94.0) L 07/22/16 07:30 MCH 18.5 pg (27.0-31.0) L 07/22/16 07:30 MCHC 30.3 g/dL (33.0-37.0) L 07/22/16 07:30 RDW 21.7 % (11.5-14.5) H 07/22/16 07:30 Plt Count 269 K/uL (130-400) 07/22/16 07:30 MPV 8.7 fL (7.2-11.7) 07/22/16 07:30 Neut % (Auto) 60.4 % (50.0-75.0) 07/22/16 07:30 Lymph % (Auto) 20.6 % (20.0-40.0) 07/22/16 07:30 Morrow % (Auto) 12.2 % (0.0-10.0) H 07/22/16 07:30 Eos % (Auto) 5.9 % (0.0-4.0) H 07/22/16 07:30 Baso % (Auto) 0.9 % (0.0-2.0) 07/22/16 07:30 Neut # 4.4 K/uL (1.8-7.0) 07/22/16 07:30 Lymph # 1.5 K/uL (1.0-4.3) 07/22/16 07:30 Morrow # 0.9 K/uL (0.0-0.8) H 07/22/16 07:30 Eos # 0.4 K/uL (0.0-0.7) 07/22/16 07:30 Baso # 0.1 K/uL (0.0-0.2) 07/22/16 07:30 Neutrophils % (Manual) 85 % (50-75) H 07/20/16 06:18 Band Neutrophils % 1 % (0-2) 07/20/16 06:18 Lymphocytes % (Manual) 9 % (20-40) L 07/20/16 06:18 Monocytes % (Manual) 3 % (0-10) 07/20/16 06:18 Eosinophils % (Manual) 1 % (0-4) 07/20/16 06:18 Basophils % (Manual) 1 % (0-2) 07/20/16 06:18 Platelet Estimate Normal (NORMAL) 07/20/16 06:18 Large Platelets Present 07/20/16 06:18 Giant Platelets Present 07/20/16 06:18 Hypochromasia (manual) Moderate 07/20/16 06:18 Poikilocytosis (manual Slight 07/20/16 06:18 Anisocytosis (manual) Moderate 07/20/16 06:18 Microcytosis (manual) Slight 07/19/16 10:30 Macrocytosis (manual) Slight 07/19/16 10:30 Target Cells Slight 07/20/16 06:18 Tear Drop Cells Slight 07/19/16 10:30 Ovalocytes Slight 07/20/16 06:18 PT 13.0 SECONDS (9.7-12.2) H 07/19/16 10:55 INR 1.2 07/19/16 10:55 APTT 31 SECONDS (21-34) 07/19/16 10:55 Sodium 137 mmol/L (132-148) 07/22/16 07:30 Potassium 4.0 mmol/L (3.6-5.2) 07/22/16 07:30 Chloride 99 mmol/L (98-107) 07/22/16 07:30 Carbon Dioxide 28 mmol/L (22-30) 07/22/16 07:30 Anion Gap 14 (10-20) 07/22/16 07:30 BUN 7 mg/dL (9-20) L 07/22/16 07:30 Creatinine 1.1 MG/DL (0.8-1.5) 07/22/16 07:30 Est GFR ( Amer) > 60 07/22/16 07:30 Est GFR (Non-Af Amer) > 60 07/22/16 07:30 POC Glucose (mg/dL) 98 mg/dL (65-110) 07/21/16 21:24 Random Glucose 84 mg/dL (75-110) 07/22/16 07:30 Hemoglobin A1c 5.5 % (4.2-6.5) 07/19/16 10:30 Calcium 8.5 mg/dl (8.6-10.4) L 07/22/16 07:30 Phosphorus 3.7 mg/dL (2.5-4.5) 07/22/16 07:30 Magnesium 2.0 mg/dL (1.6-2.3) 07/22/16 07:30 Total Bilirubin 0.3 mg/dL (0.2-1.3) 07/22/16 07:30 AST 25 U/L (17-59) 07/22/16 07:30 ALT 21 U/L (21-72) 07/22/16 07:30 Alkaline Phosphatase 45 U/L (38-126) 07/22/16 07:30 Troponin I < 0.0120 ng/mL (0.00-0.120) 07/19/16 10:30 Total Protein 6.0 g/dL (6.3-8.3) L 07/22/16 07:30 Albumin 3.2 g/dL (3.5-5.0) L 07/22/16 07:30 Globulin 2.8 gm/dL (2.2-3.9) 07/22/16 07:30 Albumin/Globulin Ratio 1.2 (1.0-2.1) 07/22/16 07:30 Triglycerides 69 mg/dL (0-149) 07/19/16 10:30 Cholesterol 119 mg/dL (0-199) 07/19/16 10:30 LDL Cholesterol Direct 57 mg/dL (0-129) 07/19/16 10:30 HDL Cholesterol 45 mg/dL (30-70) 07/19/16 10:30 Urine Color Yellow (YELLOW) 07/19/16 10:55 Urine Clarity Clear (Clear) 07/19/16 10:55 Urine pH 5.0 (5.0-8.0) 07/19/16 10:55 Ur Specific [place] 1.018 (1.003-1.030) 07/19/16 10:55 Urine Protein Negative mg/dL (NEGATIVE) 07/19/16 10:55 Urine Glucose (UA) Normal mg/dL (Normal) 07/19/16 10:55 Urine Ketones Trace mg/dL (NEGATIVE) 07/19/16 10:55 Urine Blood Negative (NEGATIVE) 07/19/16 10:55 Urine Nitrate Negative (NEGATIVE) 07/19/16 10:55 Urine Bilirubin Negative (NEGATIVE) 07/19/16 10:55 Urine Urobilinogen Normal mg/dL (0.2-1.0) 07/19/16 10:55 Ur Leukocyte Esterase Neg [place]ilani/uL (Negative) 07/19/16 10:55 Urine WBC (Auto) 1 /hpf (0-5) 07/19/16 10:55 Urine RBC (Auto) 1 /hpf (0-3) 07/19/16 10:55 Salicylates < 1.0 mg/dL 1 07/19/16 20:21 Urine Opiates Screen Positive (NEGATIVE) 07/19/16 10:55 Urine Methadone Screen Negative (NEGATIVE) 07/19/16 10:55 Acetaminophen < 10.0 ug/mL (10.0-30.0) L 07/19/16 20:21 Ur Barbiturates Screen Negative (NEGATIVE) 07/19/16 10:55 Ur Phencyclidine Scrn Negative (NEGATIVE) 07/19/16 10:55 Ur Amphetamines Screen Negative (NEGATIVE) 07/19/16 10:55 U Benzodiazepines Scrn Positive (NEGATIVE) 07/19/16 10:55 U Oth Cocaine Metabols Negative (NEGATIVE) 07/19/16 10:55 U Cannabinoids Screen Negative (NEGATIVE) 07/19/16 10:55 Alcohol, Quantitative < 10 mg/dl (0-10) 07/19/16 20:21 Blood Type O POSITIVE 07/19/16 10:30 Antibody Screen Negative 07/19/16 10:30 - Hospital Course Hospital Course: Upon Admission: 60 yo M with PMH of stroke (1997), chronic pain and HTN that presented to the ED after family found him with slurred speech and "seemed off." According to EMS , narcotic overdose was suspected as EMS found a bottle of morphine for 60 day supply that was filled on 06/27 with only 2 pills left. He was given narcan which he responded to with increased alertness, following commands and improved breathing. Patient has percocet and morphine at home for chronic pain that he has had since his stroke in 1997. He sees a pain specialist and states that he was just taking extra because of the pain. He has no suicidal ideations. In the ED, patient had urine toxicology positive for benzodiazepines and morphine. CT head was negative. Patient was admitted to ICU overnight for airway watch and was not administered any narcan. AMS had resolved the next day and patient was stepped down to med/surg floor. Patient's leukocytosis was deemed likely secondary to PNA vs leukocytosis and patient was started on Rocephin and Azithromycin as ppx. Cardiology Dr. Ernandez was consulted regarding AMS and patient had an echo that showed LV function wnl with EF 50-55 % and some diastolic dysfunction. Patient's [facility] pharmacy was called and medications were reconciled and restarted. Patient was observed overnight after starting home medications. On day of discharge patient was deemed medically stable for discharge as per Dr. Mays. 1) AMS: resolved- likely secondary to overdose of narcotics. Patient was not given any additional scripts for his medications and was to follow up with pain management doctor within 7 days. 2) Leukocytosis: resolved 3) Hx of chronic pain: manage outpatient 4) Hx of hypertension: medication regimen changed as patient is to only take Atenolol 50mg po daily and was advised to no longer take Losartan. Upon Discharge: Patient stable for discharge home as per Dr. Mays. Patient has been prescribed new medication as follows: Atenolol 50mg PO daily Disp #30 Patient has been advised to stop taking home medication of losartan. Patient to resume all other home medications and is to follow up with PMD and Pain Management doctor within 7 days. If symptoms persist or worsen patient to visit ED immediately. Instructions discussed in detail with patient who understands and agrees. Please note this is a discharge summary. For full hospital course please refer to medical records. Discharge Exam - Head Exam Head Exam: NORMAL INSPECTION - Eye Exam Eye Exam: Normal appearance, PERRL. absent: Conjunctival injection, Scleral icterus - ENT Exam ENT Exam: Mucous Membranes Moist - Neck Exam Neck exam: Normal Inspection - Respiratory Exam Respiratory Exam: Clear to PA & Lateral, NORMAL BREATHING PATTERN, UNREMARKABLE. absent: Accessory Muscle Use, Rales, Rhonchi, Wheezes, Respiratory Distress - Cardiovascular Exam Cardiovascular Exam: REGULAR RHYTHM, RRR, +S1, +S2 - GI/Abdominal Exam GI & Abdominal Exam: Normal Bowel Sounds, Soft. absent: Distended, Firm, Guarding, Rigid, Tenderness - Extremities Exam Extremities exam: normal capillary refill, normal inspection, pedal pulses present - Back Exam Back exam: NORMAL INSPECTION - Neurological Exam Neurological exam: Alert, CN II-XII Intact, Oriented x3 - Psychiatric Exam Psychiatric exam: Normal Affect, Normal Mood - Skin Skin Exam: Dry, Intact, Normal Color, Warm Discharge Plan - Discharge Medications Prescriptions: Atenolol [Tenormin] 50 mg PO DAILY #30 tab - Follow Up Plan Condition: STABLE Disposition: HOME/ ROUTINE Instructions: Acute Respiratory Distress Syndrome (DC), Narcotic Abuse (DC), Opioid Withdrawal (DC) Additional Instructions: Patient stable for discharge home as per Dr. Mays. Patient has been prescribed new medication as follows: Atenolol 50mg PO daily Disp #30 Patient has been advised to stop taking home medication of losartan. Patient to resume all other home medications and is to follow up with PMD and Pain Management doctor within 7 days. Patient to also follow up with cardiology Dr. Ernandez within 10 days regarding primary AV block. If symptoms persist or worsen patient to visit ED immediately. Instructions discussed in detail with patient who understands and agrees. Referrals: Praneeth Ernandez MD [Staff Provider] - <Jacklyn Mays V - Last Filed: 07/22/16 21:27> Provider - Provider Date of Admission: 07/19/16 14:02 Attending physician: Praneeth Ernandez MD Hospital Course - Lab Results Lab Results: Micro Results 07/20/16 Unknown Naris MRSA Culture - Final MRSA NOT DETECTED 07/19/16 Unknown Naris MRSA Culture (Admit) - Final MRSA NOT DETECTED Most Recent Lab Values WBC 7.3 K/uL (4.8-10.8) 07/22/16 07:30 RBC 4.88 Mil/uL (4.40-5.90) 07/22/16 07:30 Hgb 9.0 g/dL (12.0-18.0) L 07/22/16 07:30 Hct 29.9 % (35.0-51.0) L 07/22/16 07:30 MCV 61.2 fL (80.0-94.0) L 07/22/16 07:30 MCH 18.5 pg (27.0-31.0) L 07/22/16 07:30 MCHC 30.3 g/dL (33.0-37.0) L 07/22/16 07:30 RDW 21.7 % (11.5-14.5) H 07/22/16 07:30 Plt Count 269 K/uL (130-400) 07/22/16 07:30 MPV 8.7 fL (7.2-11.7) 07/22/16 07:30 Neut % (Auto) 60.4 % (50.0-75.0) 07/22/16 07:30 Lymph % (Auto) 20.6 % (20.0-40.0) 07/22/16 07:30 Morrow % (Auto) 12.2 % (0.0-10.0) H 07/22/16 07:30 Eos % (Auto) 5.9 % (0.0-4.0) H 07/22/16 07:30 Baso % (Auto) 0.9 % (0.0-2.0) 07/22/16 07:30 Neut # 4.4 K/uL (1.8-7.0) 07/22/16 07:30 Lymph # 1.5 K/uL (1.0-4.3) 07/22/16 07:30 Morrow # 0.9 K/uL (0.0-0.8) H 07/22/16 07:30 Eos # 0.4 K/uL (0.0-0.7) 07/22/16 07:30 Baso # 0.1 K/uL (0.0-0.2) 07/22/16 07:30 Neutrophils % (Manual) 85 % (50-75) H 07/20/16 06:18 Band Neutrophils % 1 % (0-2) 07/20/16 06:18 Lymphocytes % (Manual) 9 % (20-40) L 07/20/16 06:18 Monocytes % (Manual) 3 % (0-10) 07/20/16 06:18 Eosinophils % (Manual) 1 % (0-4) 07/20/16 06:18 Basophils % (Manual) 1 % (0-2) 07/20/16 06:18 Platelet Estimate Normal (NORMAL) 07/20/16 06:18 Large Platelets Present 07/20/16 06:18 Giant Platelets Present 07/20/16 06:18 Hypochromasia (manual) Moderate 07/20/16 06:18 Poikilocytosis (manual Slight 07/20/16 06:18 Anisocytosis (manual) Moderate 07/20/16 06:18 Microcytosis (manual) Slight 07/19/16 10:30 Macrocytosis (manual) Slight 07/19/16 10:30 Target Cells Slight 07/20/16 06:18 Tear Drop Cells Slight 07/19/16 10:30 Ovalocytes Slight 07/20/16 06:18 PT 13.0 SECONDS (9.7-12.2) H 07/19/16 10:55 INR 1.2 07/19/16 10:55 APTT 31 SECONDS (21-34) 07/19/16 10:55 Sodium 137 mmol/L (132-148) 07/22/16 07:30 Potassium 4.0 mmol/L (3.6-5.2) 07/22/16 07:30 Chloride 99 mmol/L (98-107) 07/22/16 07:30 Carbon Dioxide 28 mmol/L (22-30) 07/22/16 07:30 Anion Gap 14 (10-20) 07/22/16 07:30 BUN 7 mg/dL (9-20) L 07/22/16 07:30 Creatinine 1.1 MG/DL (0.8-1.5) 07/22/16 07:30 Est GFR ( Amer) > 60 07/22/16 07:30 Est GFR (Non-Af Amer) > 60 07/22/16 07:30 POC Glucose (mg/dL) 120 mg/dL (65-110) H 07/22/16 16:25 Random Glucose 84 mg/dL (75-110) 07/22/16 07:30 Hemoglobin A1c 5.5 % (4.2-6.5) 07/19/16 10:30 Calcium 8.5 mg/dl (8.6-10.4) L 07/22/16 07:30 Phosphorus 3.7 mg/dL (2.5-4.5) 07/22/16 07:30 Magnesium 2.0 mg/dL (1.6-2.3) 07/22/16 07:30 Total Bilirubin 0.3 mg/dL (0.2-1.3) 07/22/16 07:30 AST 25 U/L (17-59) 07/22/16 07:30 ALT 21 U/L (21-72) 07/22/16 07:30 Alkaline Phosphatase 45 U/L (38-126) 07/22/16 07:30 Troponin I < 0.0120 ng/mL (0.00-0.120) 07/19/16 10:30 Total Protein 6.0 g/dL (6.3-8.3) L 07/22/16 07:30 Albumin 3.2 g/dL (3.5-5.0) L 07/22/16 07:30 Globulin 2.8 gm/dL (2.2-3.9) 07/22/16 07:30 Albumin/Globulin Ratio 1.2 (1.0-2.1) 07/22/16 07:30 Triglycerides 69 mg/dL (0-149) 07/19/16 10:30 Cholesterol 119 mg/dL (0-199) 07/19/16 10:30 LDL Cholesterol Direct 57 mg/dL (0-129) 07/19/16 10:30 HDL Cholesterol 45 mg/dL (30-70) 07/19/16 10:30 Urine Color Yellow (YELLOW) 07/19/16 10:55 Urine Clarity Clear (Clear) 07/19/16 10:55 Urine pH 5.0 (5.0-8.0) 07/19/16 10:55 Ur Specific [place] 1.018 (1.003-1.030) 07/19/16 10:55 Urine Protein Negative mg/dL (NEGATIVE) 07/19/16 10:55 Urine Glucose (UA) Normal mg/dL (Normal) 07/19/16 10:55 Urine Ketones Trace mg/dL (NEGATIVE) 07/19/16 10:55 Urine Blood Negative (NEGATIVE) 07/19/16 10:55 Urine Nitrate Negative (NEGATIVE) 07/19/16 10:55 Urine Bilirubin Negative (NEGATIVE) 07/19/16 10:55 Urine Urobilinogen Normal mg/dL (0.2-1.0) 07/19/16 10:55 Ur Leukocyte Esterase Neg [place]/uL (Negative) 07/19/16 10:55 Urine WBC (Auto) 1 /hpf (0-5) 07/19/16 10:55 Urine RBC (Auto) 1 /hpf (0-3) 07/19/16 10:55 Salicylates < 1.0 mg/dL 1 07/19/16 20:21 Urine Opiates Screen Positive (NEGATIVE) 07/19/16 10:55 Urine Methadone Screen Negative (NEGATIVE) 07/19/16 10:55 Acetaminophen < 10.0 ug/mL (10.0-30.0) L 07/19/16 20:21 Ur Barbiturates Screen Negative (NEGATIVE) 07/19/16 10:55 Ur Phencyclidine Scrn Negative (NEGATIVE) 07/19/16 10:55 Ur Amphetamines Screen Negative (NEGATIVE) 07/19/16 10:55 U Benzodiazepines Scrn Positive (NEGATIVE) 07/19/16 10:55 U Oth Cocaine Metabols Negative (NEGATIVE) 07/19/16 10:55 U Cannabinoids Screen Negative (NEGATIVE) 07/19/16 10:55 Alcohol, Quantitative < 10 mg/dl (0-10) 07/19/16 20:21 Blood Type O POSITIVE 07/19/16 10:30 Antibody Screen Negative 07/19/16 10:30 Attending/Attestation - Attestation I have personally seen and examined this patient.: Yes I have fully participated in the care of the patient.: Yes I have reviewed all pertinent clinical information, including history, physical exam and plan: Yes Notes (Text): Patient seen, examined and case discussed with day-time resident. Patient observed under his home pain regimen, doing well, pain controlled, patient stable, awake, alert, and conversant. Patient reports he has a follow-up appointment for Dr. Clark (pain management) on 07/24/16 and reports he does had sufficient quantity of pain medication for this upcoming appointment. No new prescriptions in regards to narcotic pain medication given to the patient. Patient's blood pressure is controlled; advised to discontinue his old Cozaar and use the new dose of Atenolol which he has been receiving here in the hospital. Patient recommended to follow-up with PMD, pain management, and cardiology ( patient has primary AV block, and to follow-up echocardiogram report). Patient verbalized understanding and agrees. Discussed discharge order and instructions with day-time resident and patient at bedside who verbalized understanding and agrees. New prescription: 1) Atenolol 50mg PO once a day (30/no refills) Discontinue Cozaar 25mg PO once a daily. No new pain medication scripts provided upon discharge. Assessment/Plan 1) Narcotic overdose * Admitted to ICU, observed and transferred out onto general medical floor * Patient is alert, awake, oriented X3, stable, protecting airway, speaking in full sentences * CT head 07/19/16 - no acute intracranial abnormalities * Echo - f/u read * Cardio consult ([place]) - help appreciated * continue to monitor * 07/19/16 UDS: positive for opiates 2) Leukocytosis * likely reactive secondary to overdose; has normalized * Afebrile and stable * CXR 07/19 - Venous congestion. Somewhat rounded confluent airspace opacity at the medial left lower lung zone of uncertain clinical etiology. Correlation with lateral view and or chest CT may be helpful if clinically indicated. * Chest xray (07/21/16): no acute pulmonary disease; d/c antibiotics * white count normalized * Continue to monitor 3) Hypertension, controlled * Atenolol 50mg Daily only * BP stable, continue to monitor vital signs * upon discharge provide new script for Atenolol 25mg PO daily and discontinue Cozaar 25mg PO daily per pharmacy list 4) Chronic Pain * secondary to prior stroke in 1997 * Per pharmacy ([address]) * Amitriptyline 100mg POqHS (for sleep) * Morphine ER 30mg PO Q 12hours * Percocet 10/325 1 tab PO Q 6hours PRN pain * stable after 24 hours on home regimen; awake, alert, conversant, pleasant * Patient advised to make his follow-up appointment on 07/24/16 with his pain management doctor sooner in lieu of recent overdose 5) History of stroke * CT head 07/19/16 - no acute intracranial abnormalities * Lipid panel: within normal; values available in EMR * A1c: 5.5 is not diabetic * held aspirin in light of anemia, likely chronic * Mild transaminitis-->will not start statin; follow-up with PMD * Blood pressure control given patient's risk factor of hypertension * Patient reports he goes to a rehab but cannot recall name * Residual pain from stroke with left side weakness requiring pain management 6) PPX * Pepcid 20mg bid and Maalox PRN * Lovenox 40mg subq daily * Regular diet * PT/OT eval This is a summary of patient's hospitalization. Please refer to EMR for further details.
[2016-07-22 18:38] VITALS: BP 120/77; PULSE 73; TEMP 98.4; O2SAT 99
== END 2016-07-22 20:30 | disposition home or self-care (01) ==
LOC: C.ER 09:50 → C.9E 14:02 → C.9I 14:59 → C.3T 07-20 14:43
PROVIDERS: ADMIT Internal Medicine Cardiovascular Disease; ATTEND Internal Medicine Cardiovascular Disease
DX: T40.2X1A Poisoning by other opioids, accidental (unintentional), initial encounter (principal); R41.82 Altered mental status, unspecified; I44.0 Atrioventricular block, first degree; D72.829 Elevated white blood cell count, unspecified; R06.09 Other forms of dyspnea; R47.81 Slurred speech; G89.4 Chronic pain syndrome; I10 Essential (primary) hypertension; I51.89 Other ill-defined heart diseases; W06.XXXA Fall from bed, initial encounter; Y92.003 Bedroom of unspecified non-institutional (private) residence as the place of occurrence of the external cause; I69.398 Other sequelae of cerebral infarction